=== PATIENT | female | born 2000 | race Two or more races ===

== ENCOUNTER 2024-06-15 23:31 | Emergency (ER) | payer BC ==
[~2024-06-15] VITALS: Ht 157.5 cm; Wt 84.1 kg
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
[2024-06-16 01:36] VITALS: BP 119/69; PULSE 58; RESP 16; TEMP 98.6; O2SAT 100
== END 2024-06-16 01:40 | disposition home or self-care (01) ==
LOC: ER 23:31
DX: S13.4XXA Sprain of ligaments of cervical spine, initial encounter (principal); S00.80XA Unspecified superficial injury of other part of head, initial encounter; V89.2XXA Person injured in unspecified motor-vehicle accident, traffic, initial encounter; Y93.89 Activity, other specified; Y92.411 Interstate highway as the place of occurrence of the external cause; Y99.8 Other external cause status
CPT/HCPCS: 70450; 72125